=== PATIENT | male | born 1985 | race African-American/Black ===

== ENCOUNTER 2022-03-27 17:40 | Emergency (ER) | payer OTHER ==
[~2022-03-27] VITALS: Ht 167.6 cm; Wt 77.1 kg
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
--- NOTE | 2022-03-27 18:10 | NUR ---
DR. MAYBERRY AT BEDSIDE.
[2022-03-27] MEDS ORDERED: HYDROCODONE/APAP 10/325MG TABLET ONE (18:28)
[2022-03-27] MEDS ORDERED: ONDANSETRON 4 MG TAB.RAPDIS SL ONE (18:30)
[2022-03-27] MEDS ORDERED: HYDROCODONE/APAP 10/325MG TABLET PO ONE (18:30)
[2022-03-27] MEDS ORDERED: ONDANSETRON 4 MG TAB.RAPDIS ONE (18:32)
--- NOTE | 2022-03-27 18:34 | NUR ---
PT TAKEN TO CT
--- NOTE | 2022-03-27 18:42 | NUR ---
RETURN FROM CT VIA WHEELCHAIR.
[2022-03-27] MEDS ORDERED: LIDO30AD10 TP (19:34)
[2022-03-27] MEDS ORDERED: ONDA4TAB5 PO (19:34)
[2022-03-27] MEDS ORDERED: IBUP-1953 PO (19:34)
[2022-03-27] MEDS ORDERED: METH-647 PO (19:48)
--- NOTE | 2022-03-27 20:00 | NUR ---
Patient discharged to home in stable condition. Written and verbal after care instructions given. Patient verbalizes understanding of instruction.
[2022-03-27 20:02] VITALS: BP 130/76
== END 2022-03-27 20:02 | disposition home or self-care (01) ==
LOC: ER 17:47
DX: S16.1XXA Strain of muscle, fascia and tendon at neck level, initial encounter (principal); S49.91XA Unspecified injury of right shoulder and upper arm, initial encounter; S09.90XA Unspecified injury of head, initial encounter; R22.0 Localized swelling, mass and lump, head; Z79.899 Other long term (current) drug therapy; W19.XXXA Unspecified fall, initial encounter; Y93.89 Activity, other specified; Y92.000 Kitchen of unspecified non-institutional (private) residence as the place of occurrence of the external cause; Y99.8 Other external cause status
CPT/HCPCS: 99284; 72125; 73030; 70450; Q0162